=== PATIENT | male | born 1995 | race Hispanic/Latino ===

== ENCOUNTER 2020-03-03 00:07 | Inpatient (IN) | payer OTHER, SELFPAY ==
[~2020-03-03] VITALS: Ht 162.6 cm; Wt 68.5 kg
[2020-03-03 00:47] LABS: BASOPHILS % (AUTO) 0.2 % (0.0-5.0); HEMATOCRIT 38.9 % (42-54); LYMPHOCYTES % (AUTO) 3.1 % (21.0-51.0); MEAN CORPUSCULAR HEMOGLOBIN 29.3 pg (27.0-33.0); MEAN CORPUSCULAR HGB CONC 33.9 g/dL (32.0-36.0); MEAN CORPUSCULAR VOLUME 86.3 fL (79-99); MONOCYTES % (AUTO) 6.4 % (3.0-13.0); NEUTROPHILS % (AUTO) 89.2 % (40.0-77.0); PLATELET COUNT (AUTO) 248 K/uL (130-400); RED BLOOD CELL COUNT(AUTO) 4.51 MIL/uL (4.50-6.20); RED CELL DISTRIBUTION WIDTH 12.2 % (11.0-15.5)
[2020-03-03] MEDS ORDERED: ACETAMINOPHEN EXTRA STRENGTH 500 MG TABLET ONE (00:53)
[2020-03-03] MEDS ORDERED: KETOROLAC TROMETHAMINE 30MG/ML ONE (00:53)
[2020-03-03] MEDS ORDERED: ONDANSETRON HCL 4 MG/2 ML VIAL ONE (00:53)
[2020-03-03 01:02] LABS: INR 1.01 (0.85-1.15); PARTIAL THROMBOPLASTIN TIME 26.1 SEC (26.3-35.5); PROTHROMBIN TIME 10.9 SEC (9.6-11.6)
[2020-03-03 01:12] LABS: CREATININE 0.8 mg/dL (0.5-1.5); POTASSIUM 3.5 mmol/L (3.5-5.1)
[2020-03-03 01:25] LABS: ALBUMIN 4.6 g/dL (3.5-5.0); BILIRUBIN,TOTAL 0.7 mg/dL (0.2-1.0); TOTAL PROTEIN, SERUM 8.1 g/dL (6.0-8.3)
[2020-03-03] MEDS ORDERED: ONDANSETRON HCL 4 MG/2 ML VIAL IV PRN (02:30)
[2020-03-03] MEDS ORDERED: ACETAMINOPHEN 325 MG TAB PO PRN ×2 (02:30)
[2020-03-03] MEDS ORDERED: LACTULOSE 20 GM/30 ML UDCUP PO PRN (02:30)
[2020-03-03] MEDS ORDERED: MORPHINE SULFATE 2 MG/ML 1ML SYG IVP PRN (02:30)
[2020-03-03] MEDS ORDERED: ZOSYN 3.375GM+NS 50ML 50 ML IV ONE (02:31)
[2020-03-03 02:55] LABS: APPEARANCE,URINE Clear (CLEAR); BILIRUBIN,URINE Negative (NEGATIVE); COLOR,URINE Yellow (YELLOW); GLUCOSE, URINE (UA) Negative (NEGATIVE); KETONES,URINE 40 mg/dL (NEGATIVE); LEUKOCYTE ESTERASE ,URINE Negative (NEGATIVE); NITRATE,URINE Negative (NEGATIVE); OCCULT BLOOD,URINE Negative (NEGATIVE); PH,URINE 6.5 (5.0-8.0); PROTEIN,URINE POS 1+ mg/dL (NEGATIVE)
[2020-03-03 03:03] LABS: AMPHET/METH SCREEN,URINE NEGATIVE (NEGATIVE); BARBITURATE SCREEN, URINE NEGATIVE (NEGATIVE); BENZODIAZEPINES SCREEN,URINE NEGATIVE (NEGATIVE); CANNABINOID SCREEN,URINE POSITIVE (NEGATIVE); COCAINE SCREEN,URINE POSITIVE (NEGATIVE); OPIATE SCREEN,URINE NEGATIVE (NEGATIVE); PHENCYCLIDINE SCREEN,URINE NEGATIVE (NEGATIVE)
[2020-03-03 05:00] VITALS: BP 122/64
[2020-03-03 07:57] VITALS: BP 123/58
--- NOTE | 2020-03-03 08:00 | NUR ---
AM ASSESSMENT PT AWAKE AND ORIENTED, DENIES CHEST PAIN OR DISCOMFORT, NO SOB OR LABORED RESPIRATIONS. DENIES NAUSEA OR EMESIS, NO ABDOMINAL DISCOMFORT. UP AD RICK, CONTINUES ON DROPLET ISOLATION
[2020-03-03] MEDS ORDERED: ENOXAPARIN SODIUM 40 MG/0.4 ML SYRINGE SQ SCH (09:00)
[2020-03-03] MEDS ORDERED: FAMOTIDINE 20MG TAB 20 MG TAB PO SCH (09:00)
[2020-03-03] MEDS: ZOSYN 3.375GM+NS 50ML 50 ML IV SCH ×2 (10:08→17:40)
[2020-03-03] MEDS: SODIUM CHLORIDE 0.9% 1000ML 1,000 ML IV SCH ×2 (10:24→14:26)
[2020-03-03] MEDS ORDERED: AZITHROMYCIN 250 MG TABLET PO SCH (12:15)
[2020-03-03 12:21] VITALS: BP 127/61
[2020-03-03 16:59] VITALS: BP 125/70
--- NOTE | 2020-03-03 19:25 | NUR ---
AMA PT AWAKE, ALERT, AND ORIENTED. PT STATES LEAVING AMA AND WILL NOT STAY, STATES "I FEEL BETTER". PT EDUCATED REGARDING DX AND ABNORMAL LABS AND TESTS, MADE AWARE PENDING COVID 19 RESULTS. PT STATES FEELING "BETTER THAN YESTERDAY" AND WILL LEAVE. PT MADE AWARE OF COVID 19 TEST RESULTS PENDING AND NEEDS TO SELF ISOLATE AT HOME FOR 14 DAYS OR UNTIL CLEARED . MADE AWARE TO F/U WITH PCP OUTPATIENT AND TO RETURN TO ER IF NECESSARY. PT ACKNOWLEDGED ALL INFORMATION, AND ALL QUESTIONS ANSWERED. PT TAKEN DOWN WITH MASK IN PLACE.
--- NOTE | 2020-03-06 15:19 | NUR ---
INFECTION CONTROL- NOTIFIED PT WITH NEGATIVE RESULTS ON 03/05 AT 1012.
== END 2020-03-03 17:25 | disposition left against medical advice (07) | DRG 194 ==
LOC: EDH 00:07 → OBSVTOIN 00:08 → EDHIP 00:08 → UNDOADMOB 02:24 → EDHIP 02:24 → 2AH 04:56 → 2DH 08:07 → 2AH 08:09
PROVIDERS: ADMIT Hospitalist; ATTEND Hospitalist
DX: J18.9 Pneumonia, unspecified organism (principal); M62.82 Rhabdomyolysis; F12.10 Cannabis abuse, uncomplicated; F14.10 Cocaine abuse, uncomplicated; J45.909 Unspecified asthma, uncomplicated; Z20.828 Contact with and (suspected) exposure to other viral communicable diseases
CPT/HCPCS: 36415; 71045; 74176; 80053; 80305; 81003; 82550; 83605; 83690; 85025; 85378; 85610; 85730; 87040; 87088; 87633; 87635; 87804; G0378; J1650; J1885; J2405; J2543; J7030